=== PATIENT | female | born 1995 | race Hispanic/Latino ===

== ENCOUNTER 2017-01-11 02:30 | Emergency (ER) | payer OTHER ==
[~2017-01-11] VITALS: Ht 154.9 cm; Wt 51.7 kg
[2017-01-11 03:37] LABS: BASO % 0.4 % (0.0-1.0); EOS # 0.2 K/mm3 (0.0-0.50); EOS % 1.8 % (0.0-3.0); LARGE UNSTAINED CELL # 0.1 K/mm3 (0.0-0.4); LARGE UNSTAINED CELL % 1.1 % (0.0-4.0); LYMPH # 1.9 K/mm3 (1.5-6.5); LYMPH % 20.6 % (24.0-44.0); MEAN CORPUSCULAR HGB CONC 35.4 g/dl (32.0-36.5); MEAN CORPUSCULAR VOLUME 90.4 fl (80.0-96.0); MONO # 0.4 K/mm3 (0.0-0.8); MONO % 4.6 % (0.0-5.0); NEUTROPHILS # 6.6 K/mm3 (1.8-7.7); NEUTROPHILS % 71.5 % (36.0-66.0); PLATELET COUNT, AUTOMATED 258 k/mm3 (150-450); RED CELL DISTRIBUTION WIDTH 11.8 % (11.5-14.5); WHITE BLOOD COUNT 9.2 K/mm3 (4.0-10.0)
[2017-01-11 03:55] LABS: CONTROL LINE HCG INT CTR LINE PRESENT
[2017-01-11 04:03] LABS: ALBUMIN 3.8 GM/DL (3.2-5.2); ALBUMIN/GLOBULIN RATIO 1.12 (1.00-1.93); ALKALINE PHOSPHATASE 89 U/L (45-117); ALT/SGPT 13 U/L (12-78); ANION GAP 7 MEQ/L (8-16); AST/SGOT 15 U/L (15-37); BILIRUBIN,DIRECT 0.2 MG/DL (0.0-0.2); BILIRUBIN,TOTAL 0.5 MG/DL (0.2-1.0); BLOOD UREA NITROGEN 11 MG/DL (7-18); CALCIUM LEVEL 8.4 MG/DL (8.5-10.1); CARBON DIOXIDE LEVEL 28 MEQ/L (21-32); CHLORIDE LEVEL 104 MEQ/L (98-107); CREATININE FOR GFR 0.72 MG/DL (0.55-1.02); GLUCOSE, FASTING 93 MG/DL (70-105); POTASSIUM SERUM 3.9 MEQ/L (3.5-5.1); SODIUM LEVEL 139 MEQ/L (136-145); TOTAL PROTEIN 7.2 GM/DL (6.4-8.2)
[2017-01-11] MEDS ORDERED: ISOVUE-370 76% 100ML VIAL (Q9967) As Ordered ONE (04:10)
--- NOTE | 2017-01-11 05:00 | REPUSA ---
CLINICAL HISTORY: Chest pain, exclude PE. TECHNIQUE: Multiple incremental axial, coronal and oblique images are obtained from the thoracic inle t to the upper abdomen. Intravenous contrast material was administered as per pulmonary embolism prot ocol. COMMENTS: Small right pleural effusion. Bilateral basilar atelectatic pulmonary changes. There is excellent opacification of pulmonary arterial system without evidence for pulmonary embolism . Aorta is of normal caliber without evidence for dissection or aneurysm. There is no evidence of pleural or parenchymal mass. There is no evidence of hilar or mediastinal lymphadenopathy. The heart and great vessels are within normal limits. Images of the upper abdomen demonstrate no evidence of adrenal mass. The bony structures are free of lytic or blastic lesions. IMPRESSION: Small right pleural effusion. Bilateral basilar atelectatic pulmonary changes. No evidence for pulmonary embolism. Thank you for your kind referral of this patient.
[2017-01-11] MEDS ORDERED: KETOROLAC 30 MG/ML VIAL (J1885) IV ONE (05:30)
--- NOTE | 2017-01-11 05:40 | REPUSA ---
CLINICAL HISTORY: RUQ pain. TECHNIQUE: Realtime sonographic images were obtained in multiple projections. COMMENTS: The visualized liver is of uniform echo texture without evidence of mass or defect. There is no intra or extrahepatic biliary ductal dilatation. The common bile duct measures 2.9 mm. The gallbladder is physiologically distended without evidence of calculi. The gallbladder wall is not thickened measuri ng 2.2 mm and there is no pericholecystic fluid. The right kidney measures 10.5x5.1x4.3 cm. The visualized portions of the pancreas are unremarkable. IMPRESSION: No evidence of cholelithiasis or cholecystitis. Thank you for your kind referral of this patient.
[2017-01-11 06:26] VITALS: BP 102/58
[2017-01-11] MEDS ORDERED: NAPR500T PO (06:27)
--- NOTE | 2017-01-13 07:23 | ED PDOC ---
Post-Departure Follow-Up rkaesh garcia faxed formal report of cta for fu Mu Bojorquez MD January 13, 2017 07:23
== END 2017-01-11 06:46 | disposition home or self-care (01) ==
LOC: M ED 03:36
DX: R09.1 Pleurisy (principal)
CPT/HCPCS: 71275; 76705; 80048; 80076; 83690; 84703; 85025; 85379; 96374; 99284; J1885; Q9967

== ENCOUNTER → 2018-06-05 | Outpatient (CLI) | payer OTHER | LOC: M SMT 11:01 | DX: R06.02 Shortness of breath (principal) ==

== ENCOUNTER → 2018-06-26 | Outpatient (CLI) | payer OTHER ==
[~2018-06-26] MED LIST: METHACHOLINE KIT (J7674) INH
== END ==
LOC: M CARPUL 10:50
DX: R06.02 Shortness of breath (principal)
CPT/HCPCS: J7674